=== PATIENT | male | born 1965 | race Caucasian/White ===

== ENCOUNTER 2024-09-06 15:41 | Emergency (ER) | payer MEDICAID, SELFPAY ==
[2024-09-06] VITALS (9 sets, daily range): BP systolic 93–131; BP diastolic 52–79; TEMP 96.9–97.6; O2SAT 97–98
[~2024-09-06] VITALS: Ht 165.1 cm; Wt 37.4 kg
[2024-09-06] MEDS ORDERED: DIAZ2TAB PO (15:55)
[2024-09-06] MEDS ORDERED: OXYC-1 PO (15:55)
[2024-09-06] MEDS ORDERED: FENT12DI8 TD (15:55)
[2024-09-06] MEDS: NS 1,000 ML IV ONE (16:57)
[2024-09-06] MEDS: PANTOPRAZOLE 40MG VIAL IV ONE (16:57)
[2024-09-06 17:11] LABS: ALBUMIN 1.5 G/DL (3.2-5.2); ALKALINE PHOSPHATASE 72 U/L (46-116); ALT/SGPT 12 U/L (7.0-40); AST/SGOT < 8 U/L (<34); BILIRUBIN,TOTAL 0.3 MG/DL (0.3-1.2); BLOOD UREA NITROGEN 9 MG/DL (9-23); CALCIUM LEVEL 5.9 MG/DL (8.5-10.1); CARBON DIOXIDE LEVEL 22 MMOL/L (20-31); CHLORIDE LEVEL 116 MMOL/L (98-107); GLOMERULAR FILTRATION RATE > 60.0 (>56); GLUCOSE, FASTING 87 MG/DL (60-100); POTASSIUM SERUM 3.3 MMOL/L (3.5-5.1); SODIUM LEVEL 142 MMOL/L (136-145); TOTAL PROTEIN 4.3 G/DL (5.7-8.2)
[2024-09-06] MEDS ORDERED: ISOVUE-370 76% 100ML VIAL As Ordered ONE (17:23)
[2024-09-06 17:25] LABS: BASO % 0.2 % (0.0-1.0); HEMATOCRIT 21.5 % (42.0-52.0); LYMPH # 0.2 10^3/uL (1.5-5.0); LYMPH % 2.6 % (24.0-44.0); MEAN CORPUSCULAR HEMOGLOBIN 28.4 pg (27.0-33.0); MEAN CORPUSCULAR HGB CONC 31.2 g/dl (32.0-36.5); MEAN CORPUSCULAR VOLUME 91.1 fl (80.0-96.0); MONO # 0.6 10^3/uL (0.0-0.8); MONO % 9.9 % (2.0-8.0); NEUTROPHILS # 5.6 10^3/uL (1.5-8.5); PLATELET COUNT, AUTOMATED 293 10^3/uL (150-450); RED BLOOD COUNT 2.36 10^6/uL (4.30-6.10); WHITE BLOOD COUNT 6.5 10^3/uL (4.0-10.0)
[2024-09-06 17:27] LABS: HEMOGLOBIN 6.7 g/dl (13.5-17.5)
[2024-09-06] MEDS: oxyCODONE 5MG TAB PO ONE (17:49)
[2024-09-06 17:54] LABS: INR 1.42; PROTHROMBIN TIME 16.9 SECONDS (12.5-14.5)
[2024-09-06] MEDS ORDERED: OXYC10TA12 PO (19:48)
[2024-09-06] MEDS ORDERED: HOME MED LIST COMPLETE! XX SCH (20:05)
[2024-09-06] MEDS: CALCIUM CARBONATE 500 MG CHEW U/D PO SCH (21:00)
[2024-09-06 21:41] LABS: MAGNESIUM LEVEL 1.3 MG/DL (1.8-2.4)
[2024-09-07] VITALS (10 sets, daily range): BP systolic 94–140; BP diastolic 63–86; TEMP 96.9–98.5; O2SAT 93–100
[2024-09-07] MEDS ORDERED: oxyCODONE 5MG TAB PO PRN (00:30)
[2024-09-07 01:34] LABS: HEMATOCRIT 29.9 % (42.0-52.0)
[2024-09-07 01:36] LABS: HEMOGLOBIN 9.5 g/dl (13.5-17.5)
[2024-09-07] MEDS: POTASSIUM CHLORIDE 10% LIQ 20MEQ/15ML UDC PO SCH (02:00)
[2024-09-07] MEDS ORDERED: AMINOCAPROIC ACID 5000 MG/20 ML IV STA (02:26)
[2024-09-07] MEDS: TRANEXAMIC ACID 100 MG/ML 10ML VIAL NEB ONE (02:31)
[2024-09-07] MEDS: MAG SULF 1GM/100ML (MAG RUN) 1 GM in IV 1 EA IV SCH (02:45)
[2024-09-07] MEDS: D5W IV ONE (03:33)
[2024-09-07] MEDS: AMINOCAPROIC ACID IV ONE (03:33)
[2024-09-07] MEDS: PANTOPRAZOLE 40MG VIAL IV ONE (04:20)
[2024-09-07] MEDS: KCL 10MEQ/100ML SWI (KRUN) IV SCH (05:19)
[2024-09-07 05:47] LABS: HEMOGLOBIN 10.2 g/dl (13.5-17.5); MEAN CORPUSCULAR HEMOGLOBIN 30.7 pg (27.0-33.0); MEAN CORPUSCULAR HGB CONC 32.9 g/dl (32.0-36.5); MEAN CORPUSCULAR VOLUME 93.4 fl (80.0-96.0); PLATELET COUNT, AUTOMATED 253 10^3/uL (150-450); RED BLOOD COUNT 3.32 10^6/uL (4.30-6.10); WHITE BLOOD COUNT 7.7 10^3/uL (4.0-10.0)
[2024-09-07] MEDS: TRANEXAMIC ACID 100 MG/ML 10ML VIAL NEB PRN (06:18)
[2024-09-07 06:22] LABS: ALBUMIN 1.9 G/DL (3.2-5.2); ALKALINE PHOSPHATASE 87 U/L (46-116); ALT/SGPT 14 U/L (7.0-40); AST/SGOT 10 U/L (<34); BILIRUBIN,TOTAL 0.8 MG/DL (0.3-1.2); BLOOD UREA NITROGEN 11 MG/DL (9-23); CALCIUM LEVEL 8.5 MG/DL (8.5-10.1); CARBON DIOXIDE LEVEL 25 MMOL/L (20-31); CHLORIDE LEVEL 107 MMOL/L (98-107); CREATININE FOR GFR 0.36 MG/DL (0.70-1.30); GLOMERULAR FILTRATION RATE > 60.0 (>56); GLUCOSE, FASTING 131 MG/DL (60-100); POTASSIUM SERUM 4.1 MMOL/L (3.5-5.1); SODIUM LEVEL 134 MMOL/L (136-145); TOTAL PROTEIN 5.2 G/DL (5.7-8.2)
== END 2024-09-07 07:48 | disposition short-term general hospital (02) ==
LOC: EDBD 15:41 → M ED 15:41 → UNDOADMIN 09-07 00:26 → M ED INP 09-07 00:26
DX: C10.9 Malignant neoplasm of oropharynx, unspecified (principal); D63.0 Anemia in neoplastic disease; C41.4 Malignant neoplasm of pelvic bones, sacrum and coccyx; R04.2 Hemoptysis; F41.9 Anxiety disorder, unspecified; M26.609 Unspecified temporomandibular joint disorder, unspecified side; F17.200 Nicotine dependence, unspecified, uncomplicated; Z88.0 Allergy status to penicillin; Z79.899 Other long term (current) drug therapy
CPT/HCPCS: 36415; 36430; 70491; 71045; 71250; 80053; 83735; 85014; 85018; 85025; 85027; 85610; 86850; 86900; 86901; 86920; 87486; 87581; 87633; 87798; 94640; 96365; 96366; 96375; 96376; 99291; 99292; J2470; J3475; P9016; Q9967; S0017

== ENCOUNTER → 2025-01-16 | Outpatient (CLI) | payer OTHER ==
[~2025-01-16] MED LIST: APAP500T10 PO; DIAZ2TAB PO; FENT12DI8 TD; GABA250S6; HYDR2TAB2; METH5TA; MORP15TA2; OXYC-1 PO; OXYC10TA12 PO
== END ==
LOC: M ONCR 09:00
PROVIDERS: ATTEND General Practice
DX: C09.0 Malignant neoplasm of tonsillar fossa (principal); E46 Unspecified protein-calorie malnutrition; Z92.3 Personal history of irradiation; Z93.0 Tracheostomy status; Z93.1 Gastrostomy status; Z88.0 Allergy status to penicillin; Z88.1 Allergy status to other antibiotic agents; Z79.891 Long term (current) use of opiate analgesic; Z79.899 Other long term (current) drug therapy; Z98.890 Other specified postprocedural states; Z85.830 Personal history of malignant neoplasm of bone

== ENCOUNTER → 2025-01-21 | Outpatient (CLI) | payer OTHER ==
[~2025-01-21] MED LIST changes: +CYMB1CAP5 PO; +HYDR1LIQ PO
== END ==
LOC: M ONCM 07:19
PROVIDERS: ATTEND Dietitian, Registered
DX: C76.0 Malignant neoplasm of head, face and neck (principal); Z71.3 Dietary counseling and surveillance; Z68.1 Body mass index [BMI] 19.9 or less, adult

== ENCOUNTER → 2025-01-28 | Outpatient (CLI) | payer OTHER ==
[~2025-01-28] MED LIST changes: +FLUOXETINE PEG
== END ==
LOC: M PLARAD 14:22
PROVIDERS: ATTEND Internal Medicine Hematology & Oncology
DX: C76.0 Malignant neoplasm of head, face and neck (principal)
CPT/HCPCS: 78815; A9552

== ENCOUNTER 2025-01-30 12:55 | Emergency (ER) | payer OTHER ==
[~2025-01-30] VITALS: Ht 165.1 cm; Wt 40.2 kg
[2025-01-30 14:30] VITALS: BP 91/58; TEMP 96; O2SAT 96
== END 2025-01-30 14:34 | disposition home or self-care (01) ==
LOC: M ED 12:55
DX: J93.83 Other pneumothorax (principal); C76.0 Malignant neoplasm of head, face and neck; I31.39 Other pericardial effusion (noninflammatory); R91.1 Solitary pulmonary nodule; Z93.0 Tracheostomy status; Z88.0 Allergy status to penicillin

== ENCOUNTER 2025-01-30 16:28 | Emergency (ER) | payer OTHER ==
[~2025-01-30] VITALS: Ht 165.1 cm; Wt 40.0 kg
[2025-01-30 17:45] VITALS: BP 85/57; TEMP 99; O2SAT 97
[2025-02-25] MEDS ORDERED: FLUO20SO15 PEG (14:52)
[2025-02-25] MEDS ORDERED: METH5TA PO (14:53)
[2025-02-27] MEDS ORDERED: PROC10TA5 PO (15:21)
[2025-02-27] MEDS ORDERED: ONDA-84 PO (15:21)
== END 2025-01-30 18:20 | disposition home or self-care (01) ==
LOC: M ED 16:28
DX: I31.39 Other pericardial effusion (noninflammatory) (principal); C76.0 Malignant neoplasm of head, face and neck; Z88.0 Allergy status to penicillin; Z79.899 Other long term (current) drug therapy

== ENCOUNTER → 2025-02-03 | Outpatient (CLI) | payer OTHER | LOC: M ONCR 12:51 | PROVIDERS: ATTEND General Practice | DX: C09.0 Malignant neoplasm of tonsillar fossa (principal); C77.1 Secondary and unspecified malignant neoplasm of intrathoracic lymph nodes; Z85.830 Personal history of malignant neoplasm of bone; Z92.3 Personal history of irradiation; Z79.620 Long term (current) use of immunosuppressive biologic; Z79.891 Long term (current) use of opiate analgesic; Z79.899 Other long term (current) drug therapy; Z95.5 Presence of coronary angioplasty implant and graft; Z98.890 Other specified postprocedural states; Z93.0 Tracheostomy status; Z93.1 Gastrostomy status; Z88.0 Allergy status to penicillin; Z88.1 Allergy status to other antibiotic agents ==

== ENCOUNTER 2025-02-11 10:52 | Outpatient (RCR) | payer OTHER | END 2025-02-17 | LOC: M ONCR 10:52 | PROVIDERS: ATTEND General Practice | DX: Z51.0 Encounter for antineoplastic radiation therapy (principal); C09.0 Malignant neoplasm of tonsillar fossa ==

== ENCOUNTER → 2025-02-24 | Outpatient (CLI) | payer OTHER ==
[~2025-02-24] MED LIST changes: +FLUO20SO15 PEG; +METH5TA PO
== END ==
LOC: M CARPUL 16:58
PROVIDERS: ATTEND Internal Medicine Medical Oncology
DX: I31.39 Other pericardial effusion (noninflammatory) (principal)

== ENCOUNTER → 2025-02-25 | Outpatient (CLI) | payer OTHER ==
[~2025-02-25] VITALS: Ht 165.1 cm; Wt 41.1 kg
[2025-02-25 14:13] VITALS: BP 83/51; O2SAT 97
== END ==
LOC: M PAL 13:43
PROVIDERS: ATTEND Physician Assistant
DX: Z51.5 Encounter for palliative care (principal); C44.42 Squamous cell carcinoma of skin of scalp and neck; C79.51 Secondary malignant neoplasm of bone; C77.9 Secondary and unspecified malignant neoplasm of lymph node, unspecified; Z92.21 Personal history of antineoplastic chemotherapy; Z92.3 Personal history of irradiation; Z93.0 Tracheostomy status; Z93.1 Gastrostomy status; Z79.891 Long term (current) use of opiate analgesic; Z88.0 Allergy status to penicillin; Z88.1 Allergy status to other antibiotic agents

== ENCOUNTER → 2025-03-19 | Outpatient (RCR) | payer OTHER ==
[~2025-03-19] MED LIST changes: +ONDA-84 PO; +PROC10TA5 PO
== END ==
LOC: M ONCR 03-06 13:42
PROVIDERS: ATTEND General Practice
DX: Z51.0 Encounter for antineoplastic radiation therapy (principal); C09.0 Malignant neoplasm of tonsillar fossa

== ENCOUNTER → 2025-03-19 | Outpatient (CLI) | payer OTHER ==
[2025-03-19 14:52] LABS: BASO % 0.8 % (0.0-1.0); EOS # 0.1 10^3/uL (0.0-0.5); EOS % 2.6 % (0.0-3.0); HEMATOCRIT 31.4 % (42.0-52.0); HEMOGLOBIN 10.2 g/dl (13.5-17.5); LYMPH # 0.3 10^3/uL (1.5-5.0); LYMPH % 10.9 % (24.0-44.0); MEAN CORPUSCULAR HGB CONC 32.5 g/dl (32.0-36.5); MEAN CORPUSCULAR VOLUME 98.4 fl (80.0-96.0); MONO # 0.3 10^3/uL (0.0-0.8); NEUTROPHILS % 73.3 % (36.0-66.0); PLATELET COUNT, AUTOMATED 283 10^3/uL (150-450); RED BLOOD COUNT 3.19 10^6/uL (4.30-6.10); WHITE BLOOD COUNT 2.7 10^3/uL (4.0-10.0)
[2025-03-19 15:23] LABS: ALBUMIN 3.1 G/DL (3.2-5.2); ALKALINE PHOSPHATASE 87 U/L (40-129); ALT/SGPT 25 U/L (7.0-40); AST/SGOT 24 U/L (<34); BILIRUBIN,TOTAL 0.2 MG/DL (0.3-1.2); BLOOD UREA NITROGEN 16 MG/DL (9-23); CALCIUM LEVEL 8.9 MG/DL (8.5-10.1); CARBON DIOXIDE LEVEL 32 MMOL/L (20-31); CHLORIDE LEVEL 97 MMOL/L (98-107); CREATININE FOR GFR 0.44 MG/DL (0.70-1.30); GLOMERULAR FILTRATION RATE > 90.0 (>56); GLUCOSE, FASTING 82 MG/DL (60-100); IRON (FE) 52 UG/DL (65-175); MAGNESIUM LEVEL 2.2 MG/DL (1.8-2.4); PERCENT SATURATION 18.8 % (19.7-50.0); POTASSIUM SERUM 4.9 MMOL/L (3.5-5.1); SODIUM LEVEL 134 MMOL/L (136-145); TOTAL IRON BINDING CAPACITY 277 UG/DL (250-425); TOTAL PROTEIN 6.7 G/DL (5.7-8.2)
[2025-03-19 15:27] LABS: FERRITIN 393.2 NG/ML (10.5-307.3); FREE T3 3.4 PG/ML (2.3-4.2)
[2025-03-19 15:28] LABS: THYROID STIMULATING HORMONE 7.257 uIU/ML (0.55-4.78)
[2025-03-19 15:31] LABS: FREE T4 1.12 NG/DL (0.89-1.76)
[2025-03-19 15:34] LABS: FOLATE > 24.00 NG/ML (>5.4); VITAMIN B12 LEVEL > 2000 PG/ML (211-911)
== END ==
LOC: M LAB 13:48
PROVIDERS: ATTEND Specialist
DX: C76.0 Malignant neoplasm of head, face and neck (principal)

== ENCOUNTER → 2025-03-25 | Outpatient (CLI) | payer OTHER ==
[~2025-03-25] VITALS: Ht 170.2 cm; Wt 39.7 kg
[2025-03-25 14:02] VITALS: BP 80/54; O2SAT 97
== END ==
LOC: M PAL 13:48
PROVIDERS: ATTEND Physician Assistant
DX: Z51.5 Encounter for palliative care (principal); C44.329 Squamous cell carcinoma of skin of other parts of face; C79.51 Secondary malignant neoplasm of bone; Z92.21 Personal history of antineoplastic chemotherapy; Z92.3 Personal history of irradiation; Z93.0 Tracheostomy status; Z93.1 Gastrostomy status; Z79.891 Long term (current) use of opiate analgesic; Z88.0 Allergy status to penicillin; Z88.1 Allergy status to other antibiotic agents

== ENCOUNTER → 2025-05-21 | Outpatient (CLI) | payer OTHER ==
[~2025-05-21] MED LIST changes: +LEVO25TA5 PO; +LEVO50TA5 PO
== END ==
LOC: M PLAIMG 09:51
PROVIDERS: ATTEND Internal Medicine Medical Oncology
DX: I31.39 Other pericardial effusion (noninflammatory) (principal); C76.0 Malignant neoplasm of head, face and neck

== ENCOUNTER → 2025-05-28 | Outpatient (CLI) | payer OTHER ==
[~2025-05-28] VITALS: Ht 165.1 cm; Wt 43.0 kg
[2025-05-28 14:12] VITALS: BP 94/63; O2SAT 100
== END ==
LOC: M PAL 13:49
PROVIDERS: ATTEND Physician Assistant
DX: Z51.5 Encounter for palliative care (principal); C44.42 Squamous cell carcinoma of skin of scalp and neck; C79.51 Secondary malignant neoplasm of bone; Z43.0 Encounter for attention to tracheostomy; Z43.1 Encounter for attention to gastrostomy; Z92.21 Personal history of antineoplastic chemotherapy; Z92.3 Personal history of irradiation; Z79.891 Long term (current) use of opiate analgesic; Z88.0 Allergy status to penicillin; Z88.1 Allergy status to other antibiotic agents

== ENCOUNTER → 2025-06-24 | Outpatient (CLI) | payer OTHER ==
[~2025-06-24] MED LIST changes: +BISA10SU PR; -GABA250S6; +GABA250S6 PO; +LEVO75TA4 PO; +MIDO5TA PO
== END ==
LOC: M ONCR 14:27
PROVIDERS: ATTEND General Practice
DX: C09.0 Malignant neoplasm of tonsillar fossa (principal); Z85.830 Personal history of malignant neoplasm of bone; Z92.3 Personal history of irradiation; Z93.0 Tracheostomy status; Z93.1 Gastrostomy status; C78.01 Secondary malignant neoplasm of right lung; C78.02 Secondary malignant neoplasm of left lung; Z88.1 Allergy status to other antibiotic agents; Z88.0 Allergy status to penicillin; Z79.620 Long term (current) use of immunosuppressive biologic; Z79.891 Long term (current) use of opiate analgesic; Z79.890 Hormone replacement therapy; Z79.899 Other long term (current) drug therapy

== ENCOUNTER → 2025-06-25 | Outpatient (CLI) | payer OTHER | LOC: M RAD 11:19 | PROVIDERS: ATTEND Internal Medicine Pulmonary Disease | DX: J93.83 Other pneumothorax (principal) ==

== ENCOUNTER 2025-07-31 10:55 | Inpatient (IN) | payer OTHER ==
[~2025-07-31] VITALS: Ht 165.1 cm; Wt 47.7 kg
[2025-07-31 12:45] LABS: VENOUS BASE EXCESS 4.1 (-2.0-2.0); VENOUS HCO3 27.4 MMOL/L (23.0-27.0); VENOUS O2 SATURATION 54.4 % (60.0-80.0); VENOUS PARTIAL PRESSURE CO2 35.9 mmHg (38.0-50.0); VENOUS PARTIAL PRESSURE O2 27.6 mmHg (30.0-50.0); VENOUS PH 7.501 UNITS (7.330-7.430); VENOUS STANDARD HCO3 27.5 MMOL/L; VENOUS TOTAL CO2 28.5 MMOL/L (24.0-28.0)
[2025-07-31] MEDS: NS 500 ML IV ONE (12:52)
[2025-07-31 13:08] LABS: BASO # 0.0 10^3/uL (0.0-0.2); BASO % 0.2 % (0.0-1.0); EOS # 0.0 10^3/uL (0.0-0.5); EOS % 0.0 % (0.0-3.0); LYMPH # 0.2 10^3/uL (1.5-5.0); LYMPH % 2.1 % (24.0-44.0); MONO # 0.7 10^3/uL (0.0-0.8); MONO % 7.1 % (2.0-8.0); NEUTROPHILS # 9.4 10^3/uL (1.5-8.5); NEUTROPHILS % 90.1 % (36.0-66.0); PLATELET COUNT, AUTOMATED 429 10^3/uL (150-450)
[2025-07-31 13:17] LABS: ALT/SGPT 32 U/L (7.0-40); AST/SGOT 25 U/L (<34); CALCIUM LEVEL 8.3 MG/DL (8.5-10.1); CARBON DIOXIDE LEVEL 26 MMOL/L (20-31); CHLORIDE LEVEL 95 MMOL/L (98-107); CREATININE FOR GFR 0.37 MG/DL (0.70-1.30); GLOMERULAR FILTRATION RATE > 90.0 (>56); POTASSIUM SERUM 4.4 MMOL/L (3.5-5.1); SODIUM LEVEL 132 MMOL/L (136-145)
[2025-07-31 13:26] LABS: OSMOLALITY SERUM 274 MOSM/KG (275-295)
[2025-07-31 13:45] LABS: MAGNESIUM LEVEL 2.2 MG/DL (1.8-2.4)
[2025-07-31] MEDS ORDERED: HOME MED LIST COMPLETE! XX SCH (16:55)
[2025-07-31] MEDS: NS (Normal Saline) 0.9% 1,000 ML IV SCH (17:21)
[2025-07-31] MEDS: HYDROMORPHONE HCL 0.5 MG/0.5 ML SYRINGE IV ONE (17:22)
[2025-07-31 17:24] LABS: FREE T4 1.02 NG/DL (0.89-1.76)
[2025-07-31 17:46] LABS: FREE T4 0.96 NG/DL (0.89-1.76)
[2025-07-31] MEDS ORDERED: NALOXONE INJ 0.4 MG/1 ML VIAL IV PRN (20:05)
[2025-07-31] MEDS: METHADONE 5 MG TAB PO PRN (20:40)
[2025-07-31] MEDS: HYDROMORPHONE HCL 0.5 MG/0.5 ML SYRINGE IV PRN (20:43)
[2025-07-31 21:00] VITALS: BP 98/69; TEMP 97.9; O2SAT 97
[2025-08-01] MEDS: HYDROmorphone HCL 2 MG/ML 1 ML VIAL IV PRN (00:21)
[2025-08-01 05:04] VITALS: BP 97/69; TEMP 97.5; O2SAT 95
[2025-08-01] MEDS: LEVOTHYROXINE 75 MCG TABLET (0.075 MG) PO SCH (05:23)
[2025-08-01 07:49] LABS: PLATELET COUNT, AUTOMATED 413 10^3/uL (150-450)
[2025-08-01 08:00] VITALS: BP 100/72; TEMP 98.7; O2SAT 97
[2025-08-01 08:05] LABS: ALT/SGPT 30 U/L (7.0-40); AST/SGOT 20 U/L (<34); CALCIUM LEVEL 7.5 MG/DL (8.5-10.1); CARBON DIOXIDE LEVEL 25 MMOL/L (20-31); CHLORIDE LEVEL 101 MMOL/L (98-107); CREATININE FOR GFR 0.33 MG/DL (0.70-1.30); GLOMERULAR FILTRATION RATE > 90.0 (>56); POTASSIUM SERUM 4.6 MMOL/L (3.5-5.1); SODIUM LEVEL 135 MMOL/L (136-145)
[2025-08-01] MEDS: ENOXAPARIN 40 MG/0.4 ML SYRINGE (J1650 PER 10MG) SC SCH (09:00)
[2025-08-01 12:08] VITALS: BP 99/69; TEMP 97.5; O2SAT 95
[2025-08-01 20:42] VITALS: BP 117/80; TEMP 97.7; O2SAT 96
[2025-08-02] VITALS (8 sets, daily range): BP systolic 110–142; BP diastolic 67–76; TEMP 97.2–97.7; O2SAT 94–98
[2025-08-02 09:17] LABS: PLATELET COUNT, AUTOMATED 416 10^3/uL (150-450)
[2025-08-02 09:28] LABS: CALCIUM LEVEL 7.7 MG/DL (8.5-10.1); CARBON DIOXIDE LEVEL 27 MMOL/L (20-31); CHLORIDE LEVEL 98 MMOL/L (98-107); CREATININE FOR GFR 0.37 MG/DL (0.70-1.30); GLOMERULAR FILTRATION RATE > 90.0 (>56); IRON (FE) 10 UG/DL (65-175); PERCENT SATURATION 5.7 % (19.7-50.0); POTASSIUM SERUM 4.5 MMOL/L (3.5-5.1); SODIUM LEVEL 128 MMOL/L (136-145)
[2025-08-02 09:34] LABS: VITAMIN B12 LEVEL > 2000 PG/ML (211-911)
[2025-08-02] MEDS ORDERED: ISOVUE-370 76% 100 ML VIAL As Ordered ONE (11:15)
[2025-08-02 11:56] LABS: BASO # 0.0 10^3/uL (0.0-0.2); BASO % 0.3 % (0.0-1.0); EOS # 0.1 10^3/uL (0.0-0.5); EOS % 0.4 % (0.0-3.0); LYMPH # 0.3 10^3/uL (1.5-5.0); LYMPH % 2.2 % (24.0-44.0); MONO # 1.1 10^3/uL (0.0-0.8); MONO % 9.7 % (2.0-8.0); NEUTROPHILS # 9.8 10^3/uL (1.5-8.5); NEUTROPHILS % 86.9 % (36.0-66.0); PLATELET COUNT, AUTOMATED 473 10^3/uL (150-450)
[2025-08-02] MEDS ORDERED: cefTRIAXone SOD 1 GM in DEXTROSE 5% (D5W) ADV/MINI-BAG 50 ML IV SCH (12:00)
[2025-08-02] MEDS: CEFEPIME HCL 1 GM in DEXTROSE 5% (D5W) ADV/MINI-BAG 50 ML IV SCH (12:30)
[2025-08-02] MEDS: TRANEXAMIC ACID 100 MG/ML 10ML VIAL NEB SCH (15:45)
[2025-08-02] MEDS: AZITHROMYCIN INJ 500 MG, VIAL MATE ADAPTER 1 EACH in NS 250 ML IV SCH (15:58)
[2025-08-02] MEDS: metroNIDAZOLE 500 MG in IV 1 EA IV SCH (17:00)
[2025-08-03 03:35] VITALS: BP 116/72; TEMP 97.5; O2SAT 94
[2025-08-03 07:34] VITALS: BP 111/72; TEMP 97.3; O2SAT 93
[2025-08-03 11:09] LABS: BASO # 0.0 10^3/uL (0.0-0.2); BASO % 0.2 % (0.0-1.0); EOS # 0.0 10^3/uL (0.0-0.5); EOS % 0.3 % (0.0-3.0); LYMPH # 0.2 10^3/uL (1.5-5.0); LYMPH % 1.2 % (24.0-44.0); MONO # 0.7 10^3/uL (0.0-0.8); MONO % 5.6 % (2.0-8.0); NEUTROPHILS # 11.5 10^3/uL (1.5-8.5); NEUTROPHILS % 92.2 % (36.0-66.0); PLATELET COUNT, AUTOMATED 415 10^3/uL (150-450)
[2025-08-03 11:15] LABS: CALCIUM LEVEL 7.9 MG/DL (8.5-10.1); CARBON DIOXIDE LEVEL 28 MMOL/L (20-31); CHLORIDE LEVEL 98 MMOL/L (98-107); CREATININE FOR GFR 0.38 MG/DL (0.70-1.30); GLOMERULAR FILTRATION RATE > 90.0 (>56); POTASSIUM SERUM 4.2 MMOL/L (3.5-5.1); SODIUM LEVEL 129 MMOL/L (136-145)
[2025-08-03 11:36] VITALS: BP 108/71; TEMP 97.2; O2SAT 94
[2025-08-03] MEDS: AZITHROMYCIN INJ 500 MG, VIAL MATE ADAPTER 1 EACH in NS 250 ML IV SCH (14:34)
[2025-08-03 16:28] VITALS: BP 86/59; TEMP 97.3; O2SAT 95
[2025-08-03 17:29] VITALS: BP 98/74
[2025-08-03 19:46] VITALS: BP 108/75; TEMP 97.5; O2SAT 94
[2025-08-03] MEDS: ALBUTEROL SULFATE 2.5 MG/0.5 ML INH CONCENTRATE NEB SOLN NEB PRN (19:55)
[2025-08-04 04:56] VITALS: BP 110/76; TEMP 97.3; O2SAT 94
[2025-08-04 06:38] LABS: BASO # 0.0 10^3/uL (0.0-0.2); BASO % 0.2 % (0.0-1.0); EOS # 0.1 10^3/uL (0.0-0.5); EOS % 0.6 % (0.0-3.0); LYMPH # 0.2 10^3/uL (1.5-5.0); LYMPH % 1.8 % (24.0-44.0); MONO # 0.8 10^3/uL (0.0-0.8); MONO % 7.4 % (2.0-8.0); NEUTROPHILS # 9.6 10^3/uL (1.5-8.5); NEUTROPHILS % 89.6 % (36.0-66.0); PLATELET COUNT, AUTOMATED 401 10^3/uL (150-450)
[2025-08-04 07:01] LABS: CALCIUM LEVEL 7.4 MG/DL (8.5-10.1); CARBON DIOXIDE LEVEL 27 MMOL/L (20-31); CHLORIDE LEVEL 98 MMOL/L (98-107); CREATININE FOR GFR 0.34 MG/DL (0.70-1.30); GLOMERULAR FILTRATION RATE > 90.0 (>56); POTASSIUM SERUM 4.3 MMOL/L (3.5-5.1); SODIUM LEVEL 133 MMOL/L (136-145)
[2025-08-04] MEDS ORDERED: TRANEXAMIC ACID 100 MG/ML 10ML VIAL NEB PRN (08:45)
[2025-08-04 11:27] VITALS: BP 109/76; TEMP 97.5; O2SAT 96
[2025-08-04 20:00] VITALS: BP 94/64; TEMP 97.5; O2SAT 97
[2025-08-05 04:00] VITALS: BP 94/64; TEMP 97.5; O2SAT 95
[2025-08-05 06:31] LABS: BASO # 0.0 10^3/uL (0.0-0.2); BASO % 0.2 % (0.0-1.0); EOS # 0.1 10^3/uL (0.0-0.5); EOS % 0.5 % (0.0-3.0); LYMPH # 0.3 10^3/uL (1.5-5.0); LYMPH % 2.4 % (24.0-44.0); MONO # 0.8 10^3/uL (0.0-0.8); MONO % 7.9 % (2.0-8.0); NEUTROPHILS # 9.1 10^3/uL (1.5-8.5); NEUTROPHILS % 88.6 % (36.0-66.0); PLATELET COUNT, AUTOMATED 401 10^3/uL (150-450)
[2025-08-05 06:56] LABS: CALCIUM LEVEL 7.6 MG/DL (8.5-10.1); CARBON DIOXIDE LEVEL 27 MMOL/L (20-31); CHLORIDE LEVEL 97 MMOL/L (98-107); CREATININE FOR GFR 0.36 MG/DL (0.70-1.30); GLOMERULAR FILTRATION RATE > 90.0 (>56); POTASSIUM SERUM 4.8 MMOL/L (3.5-5.1); SODIUM LEVEL 127 MMOL/L (136-145)
[2025-08-05 12:00] VITALS: BP 93/63; TEMP 97.3; O2SAT 97
[2025-08-05 15:11] LABS: C REACTIVE PROTEIN QUANTITATIV 8.94 MG/DL (<1.0)
[2025-08-05 20:18] VITALS: BP 92/63; TEMP 97.7; O2SAT 96
[2025-08-06] VITALS (135 sets, daily range): BP systolic 71–177; BP diastolic 47–94; TEMP 97.4–98.1; O2SAT 52–100
[2025-08-06 06:46] LABS: PLATELET COUNT, AUTOMATED 412 10^3/uL (150-450)
[2025-08-06] MEDS ORDERED: dexmedeTOMIDine (4 MCG/ML) 200 MCG/50 ML BTL As Ordered ONE (09:52)
[2025-08-06] MEDS ORDERED: DEXMEDETOMIDINE IV ONE (09:55)
[2025-08-06] MEDS ORDERED: dexmedeTOMidine 200 MCG in IV 1 EA IV SCH (10:00)
[2025-08-06] MEDS: NOREPINEPHRINE 4MG IN D5 250ML 4 MG in IV 1 EA IV SCH (11:53)
[2025-08-06] MEDS: IPRATROPIUM 0.5 MG/ALBUTEROL 2.5 MG INH SOL UD 3 ML NEB ONE (12:16)
[2025-08-06] MEDS: MIDODRINE 5 MG TAB PO SCH ×2 (13:10→15:56)
[2025-08-06 22:09] LABS: CK-MB VALUE MASS 5.2 NG/ML (<3.6)
[2025-08-06 22:42] LABS: CPK CREATINE PHOSPHOKINASE 73.0 U/L (46-171); MB/CK RELATIVE INDEX 7.12 (< OR =4)
[2025-08-06] MEDS ORDERED: CLOPIDOGREL 300 MG TAB PO STA (22:56)
[2025-08-06] MEDS: PANTOPRAZOLE 40MG VIAL IV ONE (23:47)
[2025-08-06] MEDS: ATORVASTATIN 20 MG TAB PO ONE (23:48)
[2025-08-06] MEDS: ASPIRIN 325 MG TAB PO ONE (23:48)
[2025-08-07] VITALS (92 sets, daily range): BP systolic 65–106; BP diastolic 50–72; TEMP 97.2–98.7; O2SAT 85–97
[2025-08-07 00:22] LABS: PLATELET COUNT, AUTOMATED 482 10^3/uL (150-450)
[2025-08-07] MEDS: HEPARIN SOD 5000 UNITS/ML 1 ML VIAL/SYRINGE IV ONE (00:54)
[2025-08-07] MEDS: HEPARIN DRIP 25,000 UNITS in IV 1 EA IV SCH (01:00)
[2025-08-07] MEDS: HEPARIN SOD 5000 UNITS/ML 1 ML VIAL/SYRINGE IV PRN (01:01)
[2025-08-07 06:23] LABS: PLATELET COUNT, AUTOMATED 470 10^3/uL (150-450)
[2025-08-07 06:44] LABS: CALCIUM LEVEL 7.5 MG/DL (8.5-10.1); CARBON DIOXIDE LEVEL 28 MMOL/L (20-31); CHLORIDE LEVEL 100 MMOL/L (98-107); CREATININE FOR GFR 0.42 MG/DL (0.70-1.30); GLOMERULAR FILTRATION RATE > 90.0 (>56); POTASSIUM SERUM 4.6 MMOL/L (3.5-5.1); SODIUM LEVEL 131 MMOL/L (136-145)
[2025-08-07 07:00] LABS: MAGNESIUM LEVEL 2.0 MG/DL (1.8-2.4); PHOSPHORUS LEVEL 2.5 MG/DL (2.5-4.9)
[2025-08-07] MEDS: PANTOPRAZOLE 40MG VIAL IV SCH (09:35)
[2025-08-07] MEDS: CEFEPIME HCL 2 GM in DEXTROSE 5% (D5W) ADV/MINI-BAG 50 ML IV SCH (12:08)
[2025-08-07] MEDS: HYDROmorphone HCL 2 MG/ML 1 ML VIAL IV PRN (20:36)
[2025-08-08] VITALS (90 sets, daily range): BP systolic 74–132; BP diastolic 50–97; TEMP 97.3–98.8; O2SAT 93–99
[2025-08-08 05:24] LABS: BASO # 0.0 10^3/uL (0.0-0.2); BASO % 0.3 % (0.0-1.0); EOS # 0.0 10^3/uL (0.0-0.5); EOS % 0.2 % (0.0-3.0); LYMPH # 0.3 10^3/uL (1.5-5.0); LYMPH % 3.0 % (24.0-44.0); MONO # 0.8 10^3/uL (0.0-0.8); MONO % 6.9 % (2.0-8.0); NEUTROPHILS # 10.1 10^3/uL (1.5-8.5); NEUTROPHILS % 89.2 % (36.0-66.0); PLATELET COUNT, AUTOMATED 438 10^3/uL (150-450)
[2025-08-08 05:42] LABS: CALCIUM LEVEL 7.8 MG/DL (8.5-10.1); CARBON DIOXIDE LEVEL 26 MMOL/L (20-31); CHLORIDE LEVEL 99 MMOL/L (98-107); CREATININE FOR GFR 0.34 MG/DL (0.70-1.30); GLOMERULAR FILTRATION RATE > 90.0 (>56); POTASSIUM SERUM 4.4 MMOL/L (3.5-5.1); SODIUM LEVEL 131 MMOL/L (136-145)
[2025-08-08] MEDS: MIDODRINE 5 MG TAB PEG SCH (12:38)
[2025-08-09] VITALS (89 sets, daily range): BP systolic 70–131; BP diastolic 49–80; TEMP 97.2–98.9; O2SAT 95–99
[2025-08-09 05:08] LABS: BASO # 0.0 10^3/uL (0.0-0.2); BASO % 0.1 % (0.0-1.0); EOS # 0.0 10^3/uL (0.0-0.5); EOS % 0.1 % (0.0-3.0); LYMPH # 0.2 10^3/uL (1.5-5.0); LYMPH % 2.7 % (24.0-44.0); MONO # 0.7 10^3/uL (0.0-0.8); MONO % 8.3 % (2.0-8.0); NEUTROPHILS # 7.5 10^3/uL (1.5-8.5); NEUTROPHILS % 88.3 % (36.0-66.0); PLATELET COUNT, AUTOMATED 404 10^3/uL (150-450)
[2025-08-09 05:41] LABS: CALCIUM LEVEL 7.8 MG/DL (8.5-10.1); CARBON DIOXIDE LEVEL 28 MMOL/L (20-31); CHLORIDE LEVEL 97 MMOL/L (98-107); CREATININE FOR GFR 0.40 MG/DL (0.70-1.30); GLOMERULAR FILTRATION RATE > 90.0 (>56); POTASSIUM SERUM 4.5 MMOL/L (3.5-5.1); SODIUM LEVEL 132 MMOL/L (136-145)
[2025-08-09] MEDS ORDERED: NOREPINEPHRINE 4MG IN D5 250ML 4 MG in IV 1 EA IV SCH (10:41)
[2025-08-09] MEDS: ASPIRIN 81 MG CHEWABLE TABLET GT SCH (10:52)
[2025-08-09] MEDS: ENOXAPARIN 40 MG/0.4 ML SYRINGE (J1650 PER 10MG) SC SCH (11:59)
[2025-08-10] VITALS (20 sets, daily range): BP systolic 74–105; BP diastolic 51–73; TEMP 97.1–98.4; O2SAT 95–99
[2025-08-10 04:48] LABS: BASO # 0.0 10^3/uL (0.0-0.2); BASO % 0.3 % (0.0-1.0); EOS # 0.0 10^3/uL (0.0-0.5); EOS % 0.4 % (0.0-3.0); LYMPH # 0.3 10^3/uL (1.5-5.0); LYMPH % 4.0 % (24.0-44.0); MONO # 0.5 10^3/uL (0.0-0.8); MONO % 6.5 % (2.0-8.0); NEUTROPHILS # 6.8 10^3/uL (1.5-8.5); NEUTROPHILS % 88.3 % (36.0-66.0); PLATELET COUNT, AUTOMATED 408 10^3/uL (150-450)
[2025-08-10 05:16] LABS: CALCIUM LEVEL 7.7 MG/DL (8.5-10.1); CARBON DIOXIDE LEVEL 27 MMOL/L (20-31); CHLORIDE LEVEL 98 MMOL/L (98-107); CREATININE FOR GFR 0.37 MG/DL (0.70-1.30); GLOMERULAR FILTRATION RATE > 90.0 (>56); POTASSIUM SERUM 4.6 MMOL/L (3.5-5.1); SODIUM LEVEL 132 MMOL/L (136-145)
[2025-08-11] VITALS (7 sets, daily range): BP systolic 85–108; BP diastolic 56–71; TEMP 97.3–99; O2SAT 96–99
[2025-08-11 05:51] LABS: BASO # 0.0 10^3/uL (0.0-0.2); BASO % 0.3 % (0.0-1.0); EOS # 0.0 10^3/uL (0.0-0.5); EOS % 0.1 % (0.0-3.0); LYMPH # 0.3 10^3/uL (1.5-5.0); LYMPH % 3.5 % (24.0-44.0); MONO # 0.7 10^3/uL (0.0-0.8); MONO % 8.7 % (2.0-8.0); NEUTROPHILS # 6.7 10^3/uL (1.5-8.5); NEUTROPHILS % 86.9 % (36.0-66.0); PLATELET COUNT, AUTOMATED 379 10^3/uL (150-450)
[2025-08-11 06:26] LABS: CALCIUM LEVEL 7.3 MG/DL (8.5-10.1); CARBON DIOXIDE LEVEL 24 MMOL/L (20-31); CHLORIDE LEVEL 98 MMOL/L (98-107); CREATININE FOR GFR 0.36 MG/DL (0.70-1.30); GLOMERULAR FILTRATION RATE > 90.0 (>56); POTASSIUM SERUM 4.6 MMOL/L (3.5-5.1); SODIUM LEVEL 129 MMOL/L (136-145)
[2025-08-12] VITALS (8 sets, daily range): BP systolic 89–138; BP diastolic 59–89; TEMP 97.2–98.6; O2SAT 95–98
[2025-08-12 06:25] LABS: BASO # 0.0 10^3/uL (0.0-0.2); BASO % 0.3 % (0.0-1.0); EOS # 0.0 10^3/uL (0.0-0.5); EOS % 0.1 % (0.0-3.0); LYMPH # 0.3 10^3/uL (1.5-5.0); LYMPH % 3.4 % (24.0-44.0); MONO # 0.7 10^3/uL (0.0-0.8); MONO % 8.5 % (2.0-8.0); NEUTROPHILS # 6.7 10^3/uL (1.5-8.5); NEUTROPHILS % 87.2 % (36.0-66.0); PLATELET COUNT, AUTOMATED 403 10^3/uL (150-450)
[2025-08-12 06:50] LABS: CALCIUM LEVEL 7.4 MG/DL (8.5-10.1); CARBON DIOXIDE LEVEL 25 MMOL/L (20-31); CHLORIDE LEVEL 99 MMOL/L (98-107); CREATININE FOR GFR 0.36 MG/DL (0.70-1.30); GLOMERULAR FILTRATION RATE > 90.0 (>56); POTASSIUM SERUM 4.4 MMOL/L (3.5-5.1); SODIUM LEVEL 131 MMOL/L (136-145)
[2025-08-13] VITALS (7 sets, daily range): BP systolic 92–104; BP diastolic 58–73; TEMP 98.1–98.8; O2SAT 96–99
[2025-08-13 06:18] LABS: BASO # 0.0 10^3/uL (0.0-0.2); BASO % 0.2 % (0.0-1.0); EOS # 0.0 10^3/uL (0.0-0.5); EOS % 0.2 % (0.0-3.0); LYMPH # 0.3 10^3/uL (1.5-5.0); LYMPH % 4.0 % (24.0-44.0); MONO # 0.7 10^3/uL (0.0-0.8); MONO % 8.6 % (2.0-8.0); NEUTROPHILS # 7.3 10^3/uL (1.5-8.5); NEUTROPHILS % 86.5 % (36.0-66.0); PLATELET COUNT, AUTOMATED 437 10^3/uL (150-450)
[2025-08-13 06:29] LABS: CALCIUM LEVEL 7.8 MG/DL (8.5-10.1); CARBON DIOXIDE LEVEL 27 MMOL/L (20-31); CHLORIDE LEVEL 99 MMOL/L (98-107); CREATININE FOR GFR 0.37 MG/DL (0.70-1.30); GLOMERULAR FILTRATION RATE > 90.0 (>56); POTASSIUM SERUM 4.3 MMOL/L (3.5-5.1); SODIUM LEVEL 133 MMOL/L (136-145)
[2025-08-13] MEDS ORDERED: METR-265 GT (08:50)
[2025-08-13] MEDS ORDERED: ASPI81CH8 GT (08:50)
[2025-08-13] MEDS ORDERED: MIDO5TA PEG (08:50)
[2025-08-13] MEDS ORDERED: LEVO75TAB GT (08:50)
== END 2025-08-13 11:22 | disposition home or self-care (01) | DRG 137 ==
LOC: M ED 10:55 → M ED INP 10:56 → M MSPAV 20:58 → OBSVTOIN 08-02 11:05 → M ICU 08-06 09:42 → M PCU 08-11 12:36
PROVIDERS: ADMIT Internal Medicine; ATTEND Student in an Organized Health Care Education/Training Program
PROC: 30233N1 Transfusion of Nonautologous Red Blood Cells into Peripheral Vein, Percutaneous Approach (ICD-10-PCS; principal; 2025-08-02)
PROC: 0W9930Z Drainage of Right Pleural Cavity with Drainage Device, Percutaneous Approach (ICD-10-PCS; 2025-08-06)
DX: J85.0 Gangrene and necrosis of lung (principal); I21.4 Non-ST elevation (NSTEMI) myocardial infarction; J96.01 Acute respiratory failure with hypoxia; G93.41 Metabolic encephalopathy; J15.1 Pneumonia due to Pseudomonas; I31.39 Other pericardial effusion (noninflammatory); J94.2 Hemothorax; C77.9 Secondary and unspecified malignant neoplasm of lymph node, unspecified; C79.51 Secondary malignant neoplasm of bone; Z93.0 Tracheostomy status; I95.89 Other hypotension; D62 Acute posthemorrhagic anemia; I51.81 Takotsubo syndrome; J93.83 Other pneumothorax; R04.2 Hemoptysis; Z93.1 Gastrostomy status; C14.0 Malignant neoplasm of pharynx, unspecified; I10 Essential (primary) hypertension; Z68.1 Body mass index [BMI] 19.9 or less, adult; E03.9 Hypothyroidism, unspecified; D72.829 Elevated white blood cell count, unspecified; Z79.890 Hormone replacement therapy; Z79.899 Other long term (current) drug therapy; Z88.0 Allergy status to penicillin; Z87.891 Personal history of nicotine dependence; E86.0 Dehydration

== ENCOUNTER → 2025-08-27 | Outpatient (CLI) | payer OTHER ==
[~2025-08-27] MED LIST changes: +ASPI81CH8 GT; +LEVO75TAB GT; +METR-265 GT; +MIDO5TA PEG
== END ==
LOC: M RAD 12:59
PROVIDERS: ATTEND Internal Medicine Pulmonary Disease
DX: J93.11 Primary spontaneous pneumothorax (principal); R91.8 Other nonspecific abnormal finding of lung field

== ENCOUNTER → 2025-09-15 | Outpatient (CLI) | payer OTHER ==
[~2025-09-15] MED LIST changes: +ISOVUE-370 76% 100 ML VIAL As Ordered ONE; +MINO100T6 PO
== END ==
LOC: M RAD 09:43
PROVIDERS: ATTEND General Practice
DX: C09.0 Malignant neoplasm of tonsillar fossa (principal)
CPT/HCPCS: 71260; 74177; Q9967

== ENCOUNTER → 2025-09-22 | Outpatient (CLI) | payer OTHER ==
[~2025-09-22] VITALS: Ht 165.1 cm; Wt 41.8 kg
[~2025-09-22] MED LIST changes: -ISOVUE-370 76% 100 ML VIAL As Ordered ONE
[2025-09-22 13:58] VITALS: BP 94/56; O2SAT 97
== END ==
LOC: M PAL 13:20
PROVIDERS: ATTEND Physician Assistant
DX: Z51.5 Encounter for palliative care (principal); C44.42 Squamous cell carcinoma of skin of scalp and neck; C79.51 Secondary malignant neoplasm of bone; R52 Pain, unspecified; Z79.82 Long term (current) use of aspirin; Z79.891 Long term (current) use of opiate analgesic; Z79.899 Other long term (current) drug therapy; Z88.0 Allergy status to penicillin; Z88.1 Allergy status to other antibiotic agents; Z92.21 Personal history of antineoplastic chemotherapy; Z92.3 Personal history of irradiation; Z93.0 Tracheostomy status; Z93.1 Gastrostomy status

== ENCOUNTER → 2025-09-26 | Outpatient (CLI) | payer OTHER | LOC: M ONCR 14:10 | PROVIDERS: ATTEND Radiology Radiation Oncology | DX: C09.0 Malignant neoplasm of tonsillar fossa (principal); C78.00 Secondary malignant neoplasm of unspecified lung; Z79.82 Long term (current) use of aspirin; Z79.899 Other long term (current) drug therapy; Z92.21 Personal history of antineoplastic chemotherapy; Z92.3 Personal history of irradiation; Z93.0 Tracheostomy status; Z93.1 Gastrostomy status; Z88.0 Allergy status to penicillin; Z88.1 Allergy status to other antibiotic agents ==

== ENCOUNTER → 2025-10-20 | Outpatient (CLI) | payer OTHER ==
[~2025-10-20] VITALS: Ht 165.1 cm; Wt 41.8 kg
[2025-10-20 15:13] VITALS: BP 89/61; O2SAT 96
== END ==
LOC: M PAL 14:44
PROVIDERS: ATTEND Physician Assistant
DX: Z51.5 Encounter for palliative care (principal); Z66 Do not resuscitate; C77.0 Secondary and unspecified malignant neoplasm of lymph nodes of head, face and neck; C79.51 Secondary malignant neoplasm of bone; Z92.21 Personal history of antineoplastic chemotherapy; Z92.3 Personal history of irradiation; Z93.1 Gastrostomy status; Z79.891 Long term (current) use of opiate analgesic; Z88.1 Allergy status to other antibiotic agents; Z88.0 Allergy status to penicillin; Z79.82 Long term (current) use of aspirin; Z79.899 Other long term (current) drug therapy